=== PATIENT | male | born 1985 | race Two or more races ===

== ENCOUNTER 2019-02-11 22:51 | Emergency (ER) | payer SELFPAY ==
[~2019-02-11] VITALS: Ht 172.7 cm; Wt 69.0 kg
[2019-02-11] MEDS ORDERED: ONDANSETRON HCL 4MG/2ML INJ IV STA (23:36)
[2019-02-11] MEDS ORDERED: KETOROLAC 30MG/ML VIAL IV STA (23:36)
[2019-02-11] MEDS ORDERED: SODIUM CHLORIDE 0.9% 1,000 ML IV ONE (23:36)
[2019-02-11 23:59] LABS: BASOPHILS % 0.7 % (0.0-2.0); EOSINOPHILS % 1.4 % (0.0-5.0); HEMATOCRIT. 46.7 % (42.0-52.0); HEMOGLOBIN. 16.4 g/dL (14.0-18.0); LYMPHOCYTES % 34.9 % (20.0-50.0); MEAN CORPUSCULAR HEMOGLOBIN 31.4 pg (28.0-32.0); MEAN CORPUSCULAR VOLUME 89.5 fL (80.0-94.0); MEAN PLATELET VOLUME 7.1 fl (7.4-10.4); MONOCYTES % 10.3 % (2.0-8.0); NEUTROPHILS % 52.7 % (40.0-76.0); PLATELET 162 x1000/uL (130-400); RED BLOOD CELL COUNT 5.22 mill/uL (4.7-6.1); RED CELL DISTRIBUTION WIDTH 12.5 % (11.6-14.6)
[2019-02-12 00:05] LABS: CLARITY URINE CLEAR (CLEAR); COLOR URINE YELLOW (YELLOW); KETONES URINE NEGATIVE (NEGATIVE); LEUKOCYTE ESTERASE URINE NEGATIVE (NEGATIVE); NITRITE URINE NEGATIVE (NEGATIVE); OCCULT BLOOD URINE NEGATIVE (NEGATIVE); PROTEIN URINE NEGATIVE (NEGATIVE); SPECIFIC GRAVITY URINE 1.017 (1.005-1.030)
[2019-02-12 00:06] LABS: CHLORIDE 104 mEq/L (98-107)
[2019-02-12 00:07] LABS: PROTHROMBIN TIME 10.4 sec (9.6-11.0)
[2019-02-12] MEDS: MORPHINE SULFATE 4 MG/ML CPJ (NOT FOR IM USE) IV SCH ×2 (02:28→02:55)
[2019-02-12 02:55] VITALS: BP 135/88
== END 2019-02-12 02:40 | disposition home or self-care (01) ==
LOC: ER 22:51
DX: R10.31 Right lower quadrant pain (principal); F17.200 Nicotine dependence, unspecified, uncomplicated
CPT/HCPCS: 36415; 74176; 80053; 81003; 83690; 85025; 85610; 96374; 96375; 99284; J1885; J2270; J2405; J7030

== ENCOUNTER 2019-02-16 11:39 | Emergency (ER) | payer SELFPAY ==
[~2019-02-16] VITALS: Ht 172.7 cm; Wt 68.0 kg
[2019-02-16 11:58] VITALS: BP 144/93
== END 2019-02-16 13:36 | disposition home or self-care (01) ==
LOC: ER 11:39
DX: R10.30 Lower abdominal pain, unspecified (principal); F17.200 Nicotine dependence, unspecified, uncomplicated
CPT/HCPCS: 99281